=== PATIENT | male | born 1955 | race American Indian/Alaskan Native ===

== ENCOUNTER 2017-10-05 14:10 | Emergency (ER) | payer SELFPAY ==
[2017-10-05 14:11] VITALS: BMI 22.8
[2017-10-05 14:17] VITALS: TEMP 97.9
--- NOTE | 2017-10-05 14:29 | C.PDOC ---
History Of Present Illness 62 y/o male brought to ED by EMS for acute ETOH intoxication. As per EMS patient was found sleeping on sidewalk and at ED admits to drinking "a whole pack". Patient denies any physical complaints at this time. Time Seen by Provider: 10/05/17 14:11 Chief Complaint (Nursing): Substance Abuse History Per: Patient, EMS History/Exam Limitations: no limitations Onset/Duration Of Symptoms: Hrs Current Symptoms Are (Timing): Still Present Suicide/Self Injury Attempted (Context): None Modifying Factor(s): Alcohol Past Medical History Reviewed: Historical Data, Nursing Documentation, Vital Signs Vital Signs: Last Vital Signs Temp 97.9 F 10/05/17 14:16 Pulse 73 10/05/17 18:07 Resp 18 10/05/17 18:07 BP 118/74 10/05/17 18:07 Pulse Ox 100 10/05/17 18:22 - Medical History PMH: Back Problems, Gastritis, HTN Surgical History: No Surg Hx Family History: States: No Known Family Hx - Social History Hx Alcohol Use: Yes Hx Substance Use: No Review Of Systems Constitutional: Negative for: Fever, Chills Cardiovascular: Negative for: Chest Pain Respiratory: Negative for: Shortness of Breath Gastrointestinal: Negative for: Nausea, Vomiting Psych: Positive for: Other (Intoxicated) Physical Exam - Physical Exam Appears: Non-toxic, Other (ETOH on breath ) Skin: Warm, Dry, No Rash Head: Atraumatic, Normacephalic Oral Mucosa: Moist Neck: Normal ROM, Supple Cardiovascular: Rhythm Regular Respiratory: Normal Breath Sounds, No Rales, No Rhonchi, No Wheezing Gastrointestinal/Abdominal: Soft, No Tenderness, No Guarding, No Rebound Neurological/Psych: Oriented x3 ED Course And Treatment O2 Sat by Pulse Oximetry: 100 (RA) Pulse Ox Interpretation: Normal Medical Decision Making Medical Decision Making: Progress Notes: Patient is currently awake, alert, and ambulating with no complaints. He is stable for discharge and will be discharged home. pt observed awake ambulatory steady gait. Disposition - Disposition Disposition: HOME/ ROUTINE Disposition Time: 07:00 Condition: STABLE Forms: [facility] ([place]) - Clinical Impression Clinical Impression: Alcohol abuse - Scribe Statement The provider has reviewed the documentation as recorded by the Scribnikole Winn All medical record entries made by the Scribe were at my direction and personally dictated by me. I have reviewed the chart and agree that the record accurately reflects my personal performance of the history, physical exam, medical decision making, and the department course for this patient. I have also personally directed, reviewed, and agree with the discharge instructions and disposition.
[2017-10-05 18:08] VITALS: BP 118/74; PULSE 73; RESP 18
[2017-10-05 18:23] VITALS: O2SAT 100
== END 2017-10-05 18:22 | disposition home or self-care (01) ==
LOC: C.ER 14:10
DX: F10.10 Alcohol abuse, uncomplicated (principal); Y90.9 Presence of alcohol in blood, level not specified